=== PATIENT | female | born 1995 | race African-American/Black ===

== ENCOUNTER 2017-05-01 10:45 | Emergency (ER) | payer SELFPAY ==
[~2017-05-01] VITALS: Ht 172.7 cm; Wt 68.2 kg
[~2017-05-01 10:45] MED LIST: FLAG500T PO
[2017-05-01 10:51] VITALS: BP 115/76; PULSE 72; RESP 22; TEMP 98.5; O2SAT 100
--- NOTE | 2017-05-01 12:37 | PD ---
HPI . Right neck pain Chief Complaint: Neck pain Time Seen by Provider: 12:19 Travel History International Travel<30 days: No Contact w/Intl Traveler<30days: No History of Present Illness HPI This patient presents with chief complaint of pain on the right side of her neck. Onset was a month ago. She has also noted some swelling. She states that her symptoms are getting progressively worse. She describes the pain as an achy sensation. She states that her pain is exacerbated by wearing. She reports no night sweats for the last couple nights. She has not noted any weight loss. She denies any ENT complaints. PFSH Past Medical History Developmental Delay: No Diminished Hearing: No Immunizations Current: Yes Social History Alcohol Use: No Tobacco Use: No Substance Use: No Allergies-Medications (Allergen,Severity, Reaction): Coded Allergies: No Known Allergies (Unverified Adverse Reaction, Unknown, 05/01/17) Reported Meds & Prescriptions Reported Meds & Active Scripts Active Augmentin (Amoxicillin-Clavulanate) 875-125 Mg Tab 1 Tab PO BID 10 Days Review of Systems Except as stated in HPI: all other systems reviewed are Neg General / Constitutional: Positive: Other (night sweats), No: Weight Loss Hematologic/Lymphatic: Positive: Lymph Node Enlargement Physical Exam Narrative GENERAL: Patient is awake and alert and looks well. SKIN: Warm and dry with no rash or lesions. She has posterior cervical lymph nodes on the right. They are about the size of a dime. They are tender. It feels like she has to enlarged nodes. Cervical lymphadenopathy on the left. HEAD: Normocephalic/atraumatic. EYES: No conjunctival injection or discharge. ENT: Negative. NECK: Lymphadenopathy as above. RESPIRATORY: Nonlabored respirations. MUSCULOSKELETAL: Atraumatic. NEUROLOGICAL: Nonfocal. PSYCHIATRIC: Appropriate mood and affect. Data Data Last Documented VS Vital Signs Date Time Temp Pulse Resp B/P (MAP) Pulse Ox O2 Delivery O2 Flow Rate FiO2 05/01/17 14:25 05/01/17 13:57 69 16 99 05/01/17 10:51 98.5 Room Air Orders Orders Ed Urine Pregnancytest Poc (05/01/17 12:19) Complete Blood Count With Diff (05/01/17 12:19) Ct Soft Tiss Neck W Iv Cont (05/01/17 12:20) Iohexol 350 Inj (Omnipaque 350 Inj) (05/01/17 13:51) Ed Discharge Order (05/01/17 14:08) Labs Laboratory Tests Test 05/01/17 12:42 White Blood Count 3.1 TH/MM3 Red Blood Count 4.27 MIL/MM3 Hemoglobin 12.0 GM/DL Hematocrit 36.6 % Mean Corpuscular Volume 85.9 FL Mean Corpuscular Hemoglobin 28.2 PG Mean Corpuscular Hemoglobin Concent 32.9 % Red Cell Distribution Width 14.3 % Platelet Count 212 TH/MM3 Mean Platelet Volume 9.0 FL Neutrophils (%) (Auto) 32.3 % Lymphocytes (%) (Auto) 56.4 % Monocytes (%) (Auto) 9.5 % Eosinophils (%) (Auto) 1.3 % Basophils (%) (Auto) 0.5 % Neutrophils # (Auto) 1.0 TH/MM3 Lymphocytes # (Auto) 1.7 TH/MM3 Monocytes # (Auto) 0.3 TH/MM3 Eosinophils # (Auto) 0.0 TH/MM3 Basophils # (Auto) 0.0 TH/MM3 CBC Comment DIFF FINAL Differential Comment MDM Medical Decision Making Medical Screen Exam Complete: Yes Emergency Medical Condition: Yes Differential Diagnosis My differential diagnosis of lymphadenopathy includes but is not limited to reactive adenopathy or lymphoma Narrative Course Patient presents with swollen right cervical lymph nodes. I have ordered a CT of the soft tissues of her neck to further characterize lymphadenopathy. I have ordered a CBC to look for abnormal white cells. Diagnosis Primary Impression: Cervical lymphadenopathy Scripts Amoxicillin-Clavulanate (Augmentin) 875-125 Mg Tab 1 TAB PO BID for Infection for 10 Days, #20 TAB 0 Refills Prov: Kimberly Cantu MD 05/01/17 Kimberly Cantu MD May 01, 2017 12:37
[2017-05-01 13:05] LABS: BASOPHIL % 0.5 % (0.0-2.0); EOSINOPHIL % 1.3 % (0.0-4.0); HEMATOCRIT 36.6 % (35.0-46.0); HEMO FLAGS DIFF FINAL; LYMPH % 56.4 % (9.0-44.0); LYMPHOCYTE # 1.7 TH/MM3 (1.0-4.8); MEAN CELL VOLUME 85.9 FL (80.0-100.0); MEAN CORPUSCULAR HEMOGLOBIN 28.2 PG (27.0-34.0); MEAN CORPUSCULAR HGB CONC 32.9 % (32.0-36.0); MONO % 9.5 % (0.0-8.0); NEUT % 32.3 % (16.0-70.0); PLATELET COUNT 212 TH/MM3 (150-450); RED BLOOD COUNT 4.27 MIL/MM3 (4.00-5.30); RED CELL DISTRIBUTION WIDTH 14.3 % (11.6-17.2); WHITE BLOOD COUNT 3.1 TH/MM3 (4.0-11.0)
[2017-05-01] MEDS ORDERED: IOHEXOL 350 MG/ML 10 ML VIAL (for RAD DIAG) IVCONTRAST ONE (13:51)
[2017-05-01 13:57] VITALS: BP 118/65; PULSE 69; RESP 16; O2SAT 99
--- NOTE | 2017-05-01 13:59 | PD ---
Physical Exam Date Seen by Provider: May 01, 2017 Time Seen by Provider: 13:45 Narrative GENERAL: Well-nourished, well-developed female in no acute distress. Afebrile. Ambulatory. SKIN: No rashes, ecchymoses or lesions. Cool and dry. HEAD: Normocephalic. EYES: No scleral icterus. No injection or drainage. NECK: Supple, trachea midline. No JVD. There are 2 1-2 cm tender, non-mobile, firm lymph nodes in the right posterior cervical region. No left-sided lymphadenopathy or supraclavicular lymphadenopathy noted. ENT: Mucosa pink and moist. Mild erythema of pharynx without edema or exudates. No uvular edema. No uvular, palatal, or tonsillar deviation. Airway patent. Nasal turbinates appear normal without nasal blood, purulent drainage or septal hematoma. EARS: Bilateral pinnae and external canals appear within normal limits. Bilateral tympanic membranes without erythema, dullness or perforation. CARDIOVASCULAR: Regular rate and rhythm without murmurs, gallops, or rubs. RESPIRATORY: Breath sounds equal bilaterally. No accessory muscle use. Data Data Last Documented VS Vital Signs Date Time Temp Pulse Resp B/P (MAP) Pulse Ox O2 Delivery O2 Flow Rate FiO2 05/01/17 13:57 69 16 118/65 (82) 99 05/01/17 10:51 98.5 Room Air Orders Orders Ed Urine Pregnancytest Poc (05/01/17 12:19) Complete Blood Count With Diff (05/01/17 12:19) Ct Soft Tiss Neck W Iv Cont (05/01/17 12:20) Iohexol 350 Inj (Omnipaque 350 Inj) (05/01/17 13:51) Labs Laboratory Tests Test 05/01/17 12:42 White Blood Count 3.1 TH/MM3 Red Blood Count 4.27 MIL/MM3 Hemoglobin 12.0 GM/DL Hematocrit 36.6 % Mean Corpuscular Volume 85.9 FL Mean Corpuscular Hemoglobin 28.2 PG Mean Corpuscular Hemoglobin Concent 32.9 % Red Cell Distribution Width 14.3 % Platelet Count 212 TH/MM3 Mean Platelet Volume 9.0 FL Neutrophils (%) (Auto) 32.3 % Lymphocytes (%) (Auto) 56.4 % Monocytes (%) (Auto) 9.5 % Eosinophils (%) (Auto) 1.3 % Basophils (%) (Auto) 0.5 % Neutrophils # (Auto) 1.0 TH/MM3 Lymphocytes # (Auto) 1.7 TH/MM3 Monocytes # (Auto) 0.3 TH/MM3 Eosinophils # (Auto) 0.0 TH/MM3 Basophils # (Auto) 0.0 TH/MM3 CBC Comment DIFF FINAL Differential Comment [facility] Medical Record Reviewed: Yes Supervised Visit with DENISE: Yes Differential Diagnosis Reactive lymphadenopathy Narrative Course Patient signed out to me pending labs and CT. In short, this an otherwise healthy 21-year-old female presents to the emergency room for evaluation of tender lumps to his right neck that she first noticed about one month ago. Patient denies fever, chills, nausea, vomiting, ENT symptoms, weight loss, or night sweats. States she has otherwise been in her usual state of health. Was told to come by her mom because the lump seems to be enlarging. Physical exam reveals 2 tender, firm, non-mobile lymph nodes in the right posterior cervical region that are about 1 to 270s in diameter. Physical exam otherwise unremarkable. CBC shows leukocyte opinion of 3.1. CT shows cervical lymphadenopathy the largest measuring 1.7 cm. Patient will be given prescription for Augmentin and told to follow up with her primary care physician for referral to ENT if symptoms persist for outpatient biopsy. Patient was lectured on the importance of follow-up given severity of potential causes of lymphadenopathy. She understands and agrees to plan. Diagnosis Primary Impression: Cervical lymphadenopathy Referrals: Ear / Nose / Throat Specialist Primary Care Physician Additional Instruction: Rest and drink plenty of fluids. Augmentin as directed, until gone. Follow-up with a primary care physician for outpatient referral to ENT for biopsy if symptoms persist. Return to the emergency room for worsening symptoms. Scripts No Active Prescriptions or Reported Meds Disposition: 01 DISCHARGE HOME Condition: Stable Kimi Chavez May 01, 2017 13:59
--- NOTE | 2017-05-01 14:01 | RADRPT ---
EXAM DATE/TIME: 05/01/2017 13:23 [facility] COMPARISON: No previous studies available for comparison. INDICATIONS : Enlarge lymph node in neck. IV CONTRAST: 75 cc Omnipaque 350 (iohexol) IV RADIATION DOSE: 13.38 CTDIvol (mGy) MEDICAL HISTORY : None SURGICAL HISTORY : None. ENCOUNTER: Initial ACUITY: 1 month PAIN SCALE: 5/10 LOCATION: neck TECHNIQUE: Volumetric scanning of the neck was performed. Using automated exposure control and adjustment of th e mA and/or kV according to patient size, radiation dose was kept as low as reasonably achievable to obtain optimal diagnostic quality images. DICOM format image data is available electronically for r eview and comparison. FINDINGS: The nasopharynx is unremarkable. Tonsils are prominent Nonspecific adenopathy is seen in the right neck extending from the angle of the mandible to the late ral supraclavicular region. This adenopathy is nonspecific data 21-year-old. Thyroid is unremarkable. CONCLUSION: Right neck adenopathy, largest node measuring 1.7 cm lateral subclavicular region. This is abnormal by size but is nonspecific by appearance and location. Prominent tonsils. Kenneth Cobos MD FACR on May 01, 2017 at 13:57 Board Certified Radiologist. This report was verified electronically.
[2017-05-01] MEDS ORDERED: AUGM875T3 PO (14:08)
== END 2017-05-01 14:53 | disposition home or self-care (01) ==
LOC: NEPD 10:45
DX: R59.1 Generalized enlarged lymph nodes (principal)
CPT/HCPCS: 70491; 84703; 85025; 99284; Q9967